=== PATIENT | male | born 1960 | race Caucasian/White ===

== ENCOUNTER 2020-10-26 07:36 | Day surgery (SDC) | payer OTHER, SELFPAY ==
[~2020-10-26] VITALS: Ht 160 cm; Wt 77.1 kg
[~2020-10-26 07:36] MED LIST: ASPI81TA3 PO; CARV6.252 PO; GABA300C PO; GEMF600T5 PO; GLYB-200 PO; LISI10TA30 PO; LORA10TA60 PO; METF1000 PO; NITR0.4T1 SL; SIMV10TA1 PO; TAMS0.4C96 PO
[2020-10-26] MEDS ORDERED: MIDAZOLAM 5 MG/5 ML VIAL ONE (09:24)
[2020-10-26] MEDS ORDERED: fentaNYL citrate 0.05 MG/ML VIAL ONE (09:24)
[2020-10-26] MEDS ORDERED: diphenhydrAMINE 50 MG/ML VIAL ONE (09:24)
[2020-10-26] MEDS ORDERED: MIDAZOLAM 2 MG/2 ML VIAL IVP ONE (10:15)
[2020-10-26] MEDS ORDERED: fentaNYL citrate 0.05 MG/ML VIAL IVP ONE (10:15)
== END 2020-10-26 11:10 | disposition home or self-care (01) ==
LOC: MDS 07:36 → MMU 07:38 → MDS 11:10
PROVIDERS: ATTEND Internal Medicine Gastroenterology
DX: K62.5 Hemorrhage of anus and rectum (principal); K25.9 Gastric ulcer, unspecified as acute or chronic, without hemorrhage or perforation; E11.40 Type 2 diabetes mellitus with diabetic neuropathy, unspecified; I10 Essential (primary) hypertension; E03.9 Hypothyroidism, unspecified; E78.5 Hyperlipidemia, unspecified; J44.9 Chronic obstructive pulmonary disease, unspecified; Z87.891 Personal history of nicotine dependence; Z79.84 Long term (current) use of oral hypoglycemic drugs; Z79.01 Long term (current) use of anticoagulants; Z79.899 Other long term (current) drug therapy; Z20.828 Contact with and (suspected) exposure to other viral communicable diseases
CPT/HCPCS: 43239; 45380; 88305; 88312; 88313; 88342; J2250; J3010; U0003; J1200